=== PATIENT | male | born 1935 | race Caucasian/White ===

== ENCOUNTER 2018-04-13 02:13 | Inpatient (IN) | payer OTHER, MEDICAID ==
[~2018-04-13] VITALS: Ht 160 cm; Wt 64.9 kg
[2018-04-13] VITALS (10 sets, daily range): BP systolic 105–157
[2018-04-13] MEDS ORDERED: NACL 0.9% 1,000 ML IV ONE ×2 (03:30→04:45)
[2018-04-13] MEDS ORDERED: cefTRIAXone 1 GM IVPB PREMIX 50 ML IV ONE ×2 (03:30→04:13)
[2018-04-13 03:33] LABS: HEMATOCRIT 38.7 % (36-54); HEMOGLOBIN 12.5 g/dL (14.0-18.0); INR 1.3 (0.80-1.20); MEAN CORPUSCULAR VOLUME 93 fL (79.0-98.0); PROTHROMBIN TIME 13.2 SECS (9.5-12.5); RED BLOOD CELL COUNT(AUTO) 4.19 MIL/uL (4.2-6.2); WHITE BLOOD COUNT (AUTO) 12.7 K/uL (4.8-10.8)
[2018-04-13 03:34] LABS: BASOPHILS % (AUTO) 0.2 % (0.0-2.0); EOSINOPHILS % (AUTO) 0.1 % (0.0-4.0); LYMPHOCYTES # (AUTO) 0.7 K/uL (1.0-5.5); LYMPHOCYTES % (AUTO) 5.7 % (20.5-51.5); MEAN CORPUSCULAR HEMOGLOBIN 30 pg (27-31); MEAN CORPUSCULAR HGB CONC 32 % (32-36); MONOCYTES # (AUTO) 0.8 K/uL (0.0-1.0); MONOCYTES % (AUTO) 6.4 % (1.7-9.3); NEUTROPHILS # (AUTO) 11.1 K/uL (1.8-7.7); NEUTROPHILS % (AUTO) 87.6 % (40.0-70.0); PLATELET COUNT (AUTO) 186 K/uL (130-430); RED CELL DISTRIBUTION WIDTH 16.6 % (9.0-15.0)
[2018-04-13] MEDS ORDERED: APIX2.5T PO (03:44)
[2018-04-13 03:48] LABS: ANION GAP 13 (5-15); CHLORIDE 108 mmol/L (98-107); POTASSIUM 4.7 mmol/L (3.5-5.1); SODIUM SERUM 143 mmol/L (136-145)
[2018-04-13 03:49] LABS: ALANINE AMINOTRANSFERASE 23 U/L (12-78); ALBUMIN 2.9 g/dL (3.4-4.8); ASPARTATE AMINOTRANSFERASE 104 U/L (10-37); CALCIUM 8.8 mg/dL (8.4-11.0); CREATININE 2.16 mg/dL (0.55-1.30); GLUCOSE 174 mg/dL (70-99); TOTAL BILIRUBIN 1.4 mg/dL (0.0-1.0); UREA NITROGEN, BLOOD 34 mg/dL (8-21)
[2018-04-13] MEDS ORDERED: FURO-150 PO (03:56)
[2018-04-13] MEDS ORDERED: POTA20TA83 PO (03:56)
[2018-04-13] MEDS ORDERED: MOM PO (03:56)
[2018-04-13] MEDS ORDERED: TAMS-11 PO (03:56)
[2018-04-13] MEDS ORDERED: SER25 PO (03:56)
[2018-04-13] MEDS ORDERED: METO25TA6 PO (03:56)
[2018-04-13] MEDS ORDERED: SIMV20TA2 PO (03:56)
[2018-04-13] MEDS ORDERED: SSNOVOLOG SUBCUT (03:56)
[2018-04-13] MEDS ORDERED: LACT10SO6 PO (03:56)
[2018-04-13] MEDS ORDERED: ACET325T53 PO (03:56)
[2018-04-13] MEDS ORDERED: MEMA5TAB PO (03:56)
[2018-04-13] MEDS ORDERED: VITD2000 PO (03:56)
[2018-04-13] MEDS ORDERED: REM15 PO (03:56)
[2018-04-13] MEDS ORDERED: QUEtiapine FUMARATE 25 MG TABLET ONE (04:20)
[2018-04-13] MEDS ORDERED: ASPIRIN 81 MG TAB.CHEW PO ONE (05:00)
[2018-04-13] MEDS ORDERED: VANCOMYCIN HCL 1,000 MG in NS 250 ML IV ONE (05:00)
[2018-04-13] MEDS ORDERED: ASPIRIN 81 MG TAB.CHEW ONE (05:09)
[2018-04-13] MEDS: INSULIN REGULAR, HUMAN 100 UNITS/ML, 10 ML VIAL (novoLIN R) SUBCUT PRN ×3 (06:38→20:46)
[2018-04-13] MEDS ORDERED: VANCOMYCIN HCL 1000 MG/VIAL IV ONE (07:04)
[2018-04-13] MEDS: LevALBUTEROL HCL 1.25 MG/0.5 ML *CONC.* VIAL.NEB (XOPENEX CONC.) INH SCH ×5 (08:00→23:43)
[2018-04-13] MEDS ORDERED: PIPERACILLIN/TAZO 3.375 GM in NS 50 ML IV SCH (08:00)
[2018-04-13] MEDS: 0.45% NACL 1,000 ML IV SCH ×2 (08:04→18:26)
[2018-04-13] MEDS ORDERED: LevALBUTEROL HCL 1.25 MG/0.5 ML *CONC.* VIAL.NEB (XOPENEX CONC.) INH ONE ×4 (10:58→23:41)
[2018-04-13] MEDS: PIPERACILLIN/TAZOBACTAM 2.25 GM/ D5W 50 ML IV SCH ×4 (15:23→22:20)
[2018-04-13] MEDS ORDERED: ACETAMINOPHEN 325 MG TABLET PO PRN (18:15)
[2018-04-13] MEDS ORDERED: MILK OF MAGNESIA 30 ML UDC PO PRN (18:15)
[2018-04-13 19:19] LABS: CREATINE KINASE MB 12.4 ng/mL (0-3.6)
[2018-04-13] MEDS ORDERED: MEMANTINE HCL 5 MG TABLET PO SCH (20:00)
[2018-04-13] MEDS ORDERED: ENOXAPARIN SODIUM 60 MG/0.6 ML SYRINGE ONE (20:34)
[2018-04-13] MEDS: MIRTAZAPINE 15 MG TABLET PO SCH (20:43)
[2018-04-13] MEDS: METOPROLOL TARTRATE 25 MG TABLET PO SCH (20:44)
[2018-04-13] MEDS: QUEtiapine FUMARATE 25 MG TABLET PO SCH (20:44)
[2018-04-13] MEDS: SIMVASTATIN 20 MG TABLET PO SCH (20:44)
[2018-04-13] MEDS ORDERED: QUEtiapine FUMARATE 25 MG TABLET PO SCH (21:00)
[2018-04-13] MEDS ORDERED: ENOXAPARIN SODIUM 60 MG/0.6 ML SYRINGE SUBCUT SCH (21:00)
[2018-04-13] MEDS ORDERED: APIXABAN 2.5 MG TABLET PO SCH (21:00)
[2018-04-13] MEDS: ENOXAPARIN SODIUM 60 MG/0.6 ML SYRINGE SUBCUT SCH (21:00)
[2018-04-13] MEDS ORDERED: ALBUTEROL SULFATE 0.083% 2.5 MG/3 ML VIAL.NEB INH ONE (21:08)
[2018-04-14] VITALS (23 sets, daily range): BP systolic 116–161
[2018-04-14] MEDS: LevALBUTEROL HCL 1.25 MG/0.5 ML *CONC.* VIAL.NEB (XOPENEX CONC.) INH SCH ×3 (03:00→19:50)
[2018-04-14] MEDS: PIPERACILLIN/TAZOBACTAM 2.25 GM/ D5W 50 ML IV SCH ×8 (04:36→21:37)
[2018-04-14] MEDS: 0.45% NACL 1,000 ML IV SCH (06:52)
[2018-04-14 07:26] LABS: BASOPHILS % (AUTO) 0.5 % (0.0-2.0); EOSINOPHILS # (AUTO) 0.1 K/uL (0.0-0.4); EOSINOPHILS % (AUTO) 0.7 % (0.0-4.0); HEMOGLOBIN 11.3 g/dL (14.0-18.0); LYMPHOCYTES # (AUTO) 0.9 K/uL (1.0-5.5); LYMPHOCYTES % (AUTO) 10.1 % (20.5-51.5); MEAN CORPUSCULAR HEMOGLOBIN 30 pg (27-31); MEAN CORPUSCULAR HGB CONC 32 % (32-36); MEAN CORPUSCULAR VOLUME 93 fL (79.0-98.0); MONOCYTES # (AUTO) 0.4 K/uL (0.0-1.0); MONOCYTES % (AUTO) 4.3 % (1.7-9.3); NEUTROPHILS # (AUTO) 7.8 K/uL (1.8-7.7); NEUTROPHILS % (AUTO) 84.4 % (40.0-70.0); PLATELET COUNT (AUTO) 148 K/uL (130-430); RED BLOOD CELL COUNT(AUTO) 3.77 MIL/uL (4.2-6.2); RED CELL DISTRIBUTION WIDTH 15.6 % (9.0-15.0); WHITE BLOOD COUNT (AUTO) 9.2 K/uL (4.8-10.8)
[2018-04-14 07:29] LABS: ANION GAP 10 (5-15); CALCIUM 7.8 mg/dL (8.4-11.0); CHLORIDE 113 mmol/L (98-107); CREATININE 1.84 mg/dL (0.55-1.30); GLUCOSE 118 mg/dL (70-99); POTASSIUM 4.7 mmol/L (3.5-5.1); SODIUM SERUM 142 mmol/L (136-145); UREA NITROGEN, BLOOD 37 mg/dL (8-21)
[2018-04-14] MEDS: POTASSIUM CHLORIDE 20 MEQ TAB.PRT.SR PO SCH (09:07)
[2018-04-14] MEDS: CHOLECALCIFEROL (VITAMIN D3) 2,000 UNIT TABLET PO SCH (09:07)
[2018-04-14] MEDS: MEMANTINE HCL 5 MG TABLET PO SCH (09:08)
[2018-04-14] MEDS: METOPROLOL TARTRATE 25 MG TABLET PO SCH ×2 (09:08→20:31)
[2018-04-14] MEDS ORDERED: LevALBUTEROL HCL 1.25 MG/0.5 ML *CONC.* VIAL.NEB (XOPENEX CONC.) INH ONE (09:29)
[2018-04-14] MEDS ORDERED: LevALBUTEROL HCL 1.25 MG/0.5 ML *CONC.* VIAL.NEB (XOPENEX CONC.) INH SCH (11:00)
[2018-04-14] MEDS ORDERED: ASPIRIN 81 MG TAB.CHEW PO ONE (11:00)
[2018-04-14] MEDS ORDERED: QUEtiapine FUMARATE 25 MG TABLET PO ONE (12:30)
[2018-04-14] MEDS: NITROGLYCERIN 0.4 MG TAB.SUBL SL PRN ×2 (12:49→18:47)
[2018-04-14] MEDS ORDERED: methylPREDNISolone SOD SUCC/PF 62.5 MG/ML VIAL IVP ONE (14:30)
[2018-04-14] MEDS: TAMSULOSIN HCL 0.4 MG CAP PO SCH ×2 (15:49→15:51)
[2018-04-14] MEDS ORDERED: LevALBUTEROL HCL 1.25 MG/0.5 ML *CONC.* VIAL.NEB (XOPENEX CONC.) INH PRN (16:30)
[2018-04-14] MEDS: INSULIN REGULAR, HUMAN 100 UNITS/ML, 10 ML VIAL (novoLIN R) SUBCUT PRN ×2 (17:30→20:50)
[2018-04-14] MEDS: FUROSEMIDE 40 MG/4 ML VIAL IVP SCH ×2 (18:48→20:32)
[2018-04-14] MEDS ORDERED: FUROSEMIDE 40 MG/4 ML VIAL ONE (18:53)
[2018-04-14] MEDS ORDERED: VANCOMYCIN HCL 1,000 MG in NS 250 ML IV SCH (20:00)
[2018-04-14] MEDS: MIRTAZAPINE 15 MG TABLET PO SCH (20:31)
[2018-04-14] MEDS: QUEtiapine FUMARATE 25 MG TABLET PO SCH (20:31)
[2018-04-14] MEDS: SIMVASTATIN 20 MG TABLET PO SCH (20:31)
[2018-04-14] MEDS: ENOXAPARIN SODIUM 60 MG/0.6 ML SYRINGE SUBCUT SCH (20:33)
[2018-04-14] MEDS: methylPREDNISolone SOD SUCC/PF 62.5 MG/ML VIAL IVP SCH (21:36)
[2018-04-15] VITALS (24 sets, daily range): BP systolic 135–188
[2018-04-15] MEDS: LevALBUTEROL HCL 1.25 MG/0.5 ML *CONC.* VIAL.NEB (XOPENEX CONC.) INH SCH ×4 (00:45→19:39)
[2018-04-15] MEDS ORDERED: LORazepam 2 MG/ML VIAL ONE (02:10)
[2018-04-15] MEDS: LORazepam 2 MG/ML VIAL IVP PRN ×4 (02:15→21:45)
[2018-04-15] MEDS: PIPERACILLIN/TAZOBACTAM 2.25 GM/ D5W 50 ML IV SCH ×8 (04:04→22:12)
[2018-04-15] MEDS: methylPREDNISolone SOD SUCC/PF 62.5 MG/ML VIAL IVP SCH ×3 (05:21→21:37)
[2018-04-15 06:18] LABS: BASOPHILS % (AUTO) 0.2 % (0.0-2.0); EOSINOPHILS % (AUTO) 0.1 % (0.0-4.0); HEMATOCRIT 36.2 % (36-54); HEMOGLOBIN 11.8 g/dL (14.0-18.0); LYMPHOCYTES # (AUTO) 0.7 K/uL (1.0-5.5); MEAN CORPUSCULAR HEMOGLOBIN 30 pg (27-31); MEAN CORPUSCULAR HGB CONC 33 % (32-36); MEAN CORPUSCULAR VOLUME 92 fL (79.0-98.0); MONOCYTES # (AUTO) 0.1 K/uL (0.0-1.0); MONOCYTES % (AUTO) 1.1 % (1.7-9.3); NEUTROPHILS # (AUTO) 4.3 K/uL (1.8-7.7); NEUTROPHILS % (AUTO) 85.6 % (40.0-70.0); PLATELET COUNT (AUTO) 174 K/uL (130-430); RED BLOOD CELL COUNT(AUTO) 3.92 MIL/uL (4.2-6.2); RED CELL DISTRIBUTION WIDTH 15.7 % (9.0-15.0); WHITE BLOOD COUNT (AUTO) 5.1 K/uL (4.8-10.8)
[2018-04-15] MEDS: INSULIN REGULAR, HUMAN 100 UNITS/ML, 10 ML VIAL (novoLIN R) SUBCUT PRN ×4 (06:32→21:44)
[2018-04-15 06:44] LABS: ANION GAP 15 (5-15); CALCIUM 8.5 mg/dL (8.4-11.0); CHLORIDE 112 mmol/L (98-107); CREATININE 2.45 mg/dL (0.55-1.30); GLUCOSE 227 mg/dL (70-99); POTASSIUM 4.9 mmol/L (3.5-5.1); SODIUM SERUM 147 mmol/L (136-145); UREA NITROGEN, BLOOD 52 mg/dL (8-21)
[2018-04-15 06:53] LABS: ALANINE AMINOTRANSFERASE 18 U/L (12-78); ALBUMIN 2.5 g/dL (3.4-4.8); ASPARTATE AMINOTRANSFERASE 35 U/L (10-37); TOTAL BILIRUBIN 0.9 mg/dL (0.0-1.0)
[2018-04-15] MEDS: FUROSEMIDE 40 MG/4 ML VIAL IVP SCH ×2 (08:55→21:38)
[2018-04-15] MEDS: CHOLECALCIFEROL (VITAMIN D3) 2,000 UNIT TABLET PO SCH (08:56)
[2018-04-15] MEDS: METOPROLOL TARTRATE 25 MG TABLET PO SCH ×2 (08:56→21:39)
[2018-04-15] MEDS: MEMANTINE HCL 5 MG TABLET PO SCH (08:57)
[2018-04-15] MEDS: ASPIRIN 81 MG TAB.CHEW PO SCH (08:57)
[2018-04-15] MEDS: POTASSIUM CHLORIDE 20 MEQ TAB.PRT.SR PO SCH (08:57)
[2018-04-15] MEDS: TAMSULOSIN HCL 0.4 MG CAP PO SCH (08:57)
[2018-04-15] MEDS: MUPIROCIN NASAL 2% OINT. NS SCH ×2 (08:58→21:47)
[2018-04-15] MEDS ORDERED: LOSARTAN POTASSIUM 50 MG TABLET (COZAAR) PO ONE (09:30)
[2018-04-15] MEDS: QUEtiapine FUMARATE 25 MG TABLET PO SCH (21:36)
[2018-04-15] MEDS: MIRTAZAPINE 15 MG TABLET PO SCH (21:37)
[2018-04-15] MEDS: SIMVASTATIN 20 MG TABLET PO SCH (21:37)
[2018-04-15] MEDS: ENOXAPARIN SODIUM 60 MG/0.6 ML SYRINGE SUBCUT SCH (21:44)
[2018-04-16] VITALS (25 sets, daily range): BP systolic 117–186
[2018-04-16] MEDS: LevALBUTEROL HCL 1.25 MG/0.5 ML *CONC.* VIAL.NEB (XOPENEX CONC.) INH SCH ×4 (00:57→19:38)
[2018-04-16] MEDS: LORazepam 2 MG/ML VIAL IVP PRN (03:45)
[2018-04-16] MEDS: PIPERACILLIN/TAZOBACTAM 2.25 GM/ D5W 50 ML IV SCH ×8 (03:45→21:17)
[2018-04-16] MEDS: methylPREDNISolone SOD SUCC/PF 62.5 MG/ML VIAL IVP SCH ×3 (06:19→21:16)
[2018-04-16 06:38] LABS: BASOPHILS % (AUTO) 0.1 % (0.0-2.0); EOSINOPHILS % (AUTO) 0.1 % (0.0-4.0); HEMATOCRIT 34.5 % (36-54); HEMOGLOBIN 11.2 g/dL (14.0-18.0); LYMPHOCYTES # (AUTO) 0.4 K/uL (1.0-5.5); LYMPHOCYTES % (AUTO) 4.7 % (20.5-51.5); MEAN CORPUSCULAR HEMOGLOBIN 30 pg (27-31); MEAN CORPUSCULAR HGB CONC 33 % (32-36); MEAN CORPUSCULAR VOLUME 93 fL (79.0-98.0); MONOCYTES # (AUTO) 0.2 K/uL (0.0-1.0); NEUTROPHILS # (AUTO) 8.2 K/uL (1.8-7.7); NEUTROPHILS % (AUTO) 93.1 % (40.0-70.0); PLATELET COUNT (AUTO) 186 K/uL (130-430); RED BLOOD CELL COUNT(AUTO) 3.71 MIL/uL (4.2-6.2); RED CELL DISTRIBUTION WIDTH 15.5 % (9.0-15.0); WHITE BLOOD COUNT (AUTO) 8.8 K/uL (4.8-10.8)
[2018-04-16 07:25] LABS: ANION GAP 12 (5-15); CHLORIDE 115 mmol/L (98-107); CREATININE 2.39 mg/dL (0.55-1.30); GLUCOSE 177 mg/dL (70-99); POTASSIUM 3.9 mmol/L (3.5-5.1); SODIUM SERUM 151 mmol/L (136-145); UREA NITROGEN, BLOOD 56 mg/dL (8-21)
[2018-04-16 07:36] LABS: ALANINE AMINOTRANSFERASE 16 U/L (12-78); ALBUMIN 2.3 g/dL (3.4-4.8); ASPARTATE AMINOTRANSFERASE 21 U/L (10-37); TOTAL BILIRUBIN 0.6 mg/dL (0.0-1.0)
[2018-04-16] MEDS: ASPIRIN 81 MG TAB.CHEW PO SCH (08:17)
[2018-04-16] MEDS: MEMANTINE HCL 5 MG TABLET PO SCH (08:17)
[2018-04-16] MEDS: FUROSEMIDE 40 MG/4 ML VIAL IVP SCH ×2 (08:17→21:17)
[2018-04-16] MEDS: CHOLECALCIFEROL (VITAMIN D3) 2,000 UNIT TABLET PO SCH (08:17)
[2018-04-16] MEDS: METOPROLOL TARTRATE 25 MG TABLET PO SCH ×2 (08:17→21:16)
[2018-04-16] MEDS: TAMSULOSIN HCL 0.4 MG CAP PO SCH (08:17)
[2018-04-16] MEDS: LOSARTAN POTASSIUM 50 MG TABLET (COZAAR) PO SCH (08:18)
[2018-04-16] MEDS: POTASSIUM CHLORIDE 20 MEQ TAB.PRT.SR PO SCH (08:18)
[2018-04-16] MEDS: MUPIROCIN 2% TOPICAL OINTMENT 22 GM NS SCH ×2 (09:57→21:18)
[2018-04-16] MEDS: INSULIN REGULAR, HUMAN 100 UNITS/ML, 10 ML VIAL (novoLIN R) SUBCUT PRN ×3 (11:52→21:23)
[2018-04-16] MEDS: D5W 1,000 ML IV SCH (14:34)
[2018-04-16] MEDS ORDERED: cloNIDine HCL 0.1 MG TABLET PO PRN (16:30)
[2018-04-16] MEDS ORDERED: cloNIDine HCL 0.1 MG TABLET ONE (17:00)
[2018-04-16] MEDS: QUEtiapine FUMARATE 25 MG TABLET PO SCH (21:15)
[2018-04-16] MEDS: MIRTAZAPINE 15 MG TABLET PO SCH (21:16)
[2018-04-16] MEDS: SIMVASTATIN 20 MG TABLET PO SCH (21:16)
[2018-04-16] MEDS: ENOXAPARIN SODIUM 60 MG/0.6 ML SYRINGE SUBCUT SCH (21:23)
[2018-04-17] VITALS (20 sets, daily range): BP systolic 127–187
[2018-04-17] MEDS: LevALBUTEROL HCL 1.25 MG/0.5 ML *CONC.* VIAL.NEB (XOPENEX CONC.) INH SCH ×4 (01:00→20:13)
[2018-04-17] MEDS: PIPERACILLIN/TAZOBACTAM 2.25 GM/ D5W 50 ML IV SCH ×8 (04:03→23:37)
[2018-04-17] MEDS: methylPREDNISolone SOD SUCC/PF 62.5 MG/ML VIAL IVP SCH ×3 (06:18→23:36)
[2018-04-17 06:50] LABS: BASOPHILS % (AUTO) 0.1 % (0.0-2.0); EOSINOPHILS % (AUTO) 0.1 % (0.0-4.0); HEMOGLOBIN 11.6 g/dL (14.0-18.0); LYMPHOCYTES # (AUTO) 0.3 K/uL (1.0-5.5); LYMPHOCYTES % (AUTO) 4.1 % (20.5-51.5); MEAN CORPUSCULAR HEMOGLOBIN 30 pg (27-31); MEAN CORPUSCULAR HGB CONC 32 % (32-36); MEAN CORPUSCULAR VOLUME 92 fL (79.0-98.0); MONOCYTES # (AUTO) 0.2 K/uL (0.0-1.0); MONOCYTES % (AUTO) 2.5 % (1.7-9.3); NEUTROPHILS # (AUTO) 7.1 K/uL (1.8-7.7); NEUTROPHILS % (AUTO) 93.2 % (40.0-70.0); PLATELET COUNT (AUTO) 199 K/uL (130-430); RED BLOOD CELL COUNT(AUTO) 3.91 MIL/uL (4.2-6.2); RED CELL DISTRIBUTION WIDTH 15.9 % (9.0-15.0); WHITE BLOOD COUNT (AUTO) 7.6 K/uL (4.8-10.8)
[2018-04-17 07:04] LABS: ANION GAP 14 (5-15); CALCIUM 8.4 mg/dL (8.4-11.0); CHLORIDE 113 mmol/L (98-107); CREATININE 2.31 mg/dL (0.55-1.30); GLUCOSE 173 mg/dL (70-99); POTASSIUM 3.5 mmol/L (3.5-5.1); SODIUM SERUM 152 mmol/L (136-145); UREA NITROGEN, BLOOD 58 mg/dL (8-21)
[2018-04-17 07:14] LABS: ALANINE AMINOTRANSFERASE 20 U/L (12-78); ALBUMIN 2.6 g/dL (3.4-4.8); ASPARTATE AMINOTRANSFERASE 24 U/L (10-37); TOTAL BILIRUBIN 0.8 mg/dL (0.0-1.0)
[2018-04-17] MEDS: FUROSEMIDE 40 MG/4 ML VIAL IVP SCH ×2 (08:04→20:37)
[2018-04-17] MEDS: hydrALAZINE HCL 20 MG/ML VIAL IVP PRN ×2 (08:05→15:44)
[2018-04-17] MEDS: MUPIROCIN 2% TOPICAL OINTMENT 22 GM NS SCH ×2 (08:18→20:37)
[2018-04-17] MEDS: ASPIRIN 81 MG TAB.CHEW PO SCH (09:00)
[2018-04-17] MEDS: LOSARTAN POTASSIUM 50 MG TABLET (COZAAR) PO SCH (09:00)
[2018-04-17] MEDS: POTASSIUM CHLORIDE 20 MEQ TAB.PRT.SR PO SCH (09:00)
[2018-04-17] MEDS ORDERED: cloNIDine HCL 0.3 MG/24 HR PATCH.TDWK TD SCH (09:00)
[2018-04-17] MEDS: MEMANTINE HCL 5 MG TABLET PO SCH (09:00)
[2018-04-17] MEDS: CHOLECALCIFEROL (VITAMIN D3) 2,000 UNIT TABLET PO SCH (09:00)
[2018-04-17] MEDS: TAMSULOSIN HCL 0.4 MG CAP PO SCH (09:00)
[2018-04-17] MEDS: METOPROLOL TARTRATE 25 MG TABLET PO SCH ×2 (09:00→20:36)
[2018-04-17] MEDS ORDERED: METOPROLOL TARTRATE 5 MG/5 ML VIAL IVP PRN (09:15)
[2018-04-17] MEDS ORDERED: HALOPERIDOL LACTATE 5 MG/ML VIAL ONE (09:42)
[2018-04-17] MEDS: HALOPERIDOL LACTATE 5 MG/ML VIAL IVP PRN ×2 (09:47→14:18)
[2018-04-17] MEDS: NITROGLYCERIN 0.4 MG TAB.SUBL SL PRN (10:24)
[2018-04-17] MEDS: D5W 1,000 ML IV SCH (11:03)
[2018-04-17] MEDS: INSULIN REGULAR, HUMAN 100 UNITS/ML, 10 ML VIAL (novoLIN R) SUBCUT PRN ×3 (11:07→20:49)
[2018-04-17] MEDS ORDERED: LORazepam 2 MG/ML VIAL IVP PRN (16:00)
[2018-04-17] MEDS: SIMVASTATIN 20 MG TABLET PO SCH (20:36)
[2018-04-17] MEDS: MIRTAZAPINE 15 MG TABLET PO SCH ×2 (20:36→21:00)
[2018-04-17] MEDS: QUEtiapine FUMARATE 25 MG TABLET PO SCH (20:37)
[2018-04-17] MEDS: ENOXAPARIN SODIUM 60 MG/0.6 ML SYRINGE SUBCUT SCH (20:49)
[2018-04-17] MEDS ORDERED: CITALOPRAM HYDROBROMIDE 20 MG TABLET PO SCH (21:00)
[2018-04-18 00:45] VITALS: BP_SYST 143
[2018-04-18] MEDS: D5W 1,000 ML IV SCH (00:57)
[2018-04-18] MEDS: LevALBUTEROL HCL 1.25 MG/0.5 ML *CONC.* VIAL.NEB (XOPENEX CONC.) INH SCH ×4 (01:00→20:22)
[2018-04-18] MEDS: methylPREDNISolone SOD SUCC/PF 62.5 MG/ML VIAL IVP SCH ×3 (05:20→21:52)
[2018-04-18] MEDS: PIPERACILLIN/TAZOBACTAM 2.25 GM/ D5W 50 ML IV SCH ×8 (05:20→21:51)
[2018-04-18] MEDS: INSULIN REGULAR, HUMAN 100 UNITS/ML, 10 ML VIAL (novoLIN R) SUBCUT PRN ×4 (06:34→22:06)
[2018-04-18 07:04] LABS: ALANINE AMINOTRANSFERASE 18 U/L (12-78); ALBUMIN 2.2 g/dL (3.4-4.8); ANION GAP 10 (5-15); ASPARTATE AMINOTRANSFERASE 23 U/L (10-37); CALCIUM 7.8 mg/dL (8.4-11.0); CHLORIDE 110 mmol/L (98-107); GLUCOSE 173 mg/dL (70-99); SODIUM SERUM 144 mmol/L (136-145); TOTAL BILIRUBIN 1.2 mg/dL (0.0-1.0); UREA NITROGEN, BLOOD 49 mg/dL (8-21)
[2018-04-18 07:08] LABS: BASOPHILS % (AUTO) 0.3 % (0.0-2.0); EOSINOPHILS % (AUTO) 0.1 % (0.0-4.0); HEMATOCRIT 32.8 % (36-54); HEMOGLOBIN 10.8 g/dL (14.0-18.0); LYMPHOCYTES # (AUTO) 0.3 K/uL (1.0-5.5); LYMPHOCYTES % (AUTO) 4.2 % (20.5-51.5); MEAN CORPUSCULAR HEMOGLOBIN 30 pg (27-31); MEAN CORPUSCULAR HGB CONC 33 % (32-36); MEAN CORPUSCULAR VOLUME 92 fL (79.0-98.0); MONOCYTES # (AUTO) 0.3 K/uL (0.0-1.0); MONOCYTES % (AUTO) 4.1 % (1.7-9.3); NEUTROPHILS # (AUTO) 6.2 K/uL (1.8-7.7); NEUTROPHILS % (AUTO) 91.3 % (40.0-70.0); PLATELET COUNT (AUTO) 172 K/uL (130-430); POTASSIUM 2.4 mmol/L (3.5-5.1); RED BLOOD CELL COUNT(AUTO) 3.56 MIL/uL (4.2-6.2); RED CELL DISTRIBUTION WIDTH 15.7 % (9.0-15.0); WHITE BLOOD COUNT (AUTO) 6.8 K/uL (4.8-10.8)
[2018-04-18] MEDS ORDERED: POTASSIUM CHLORIDE 40 MEQ in NS 250 ML IV ONE (07:45)
[2018-04-18] MEDS ORDERED: POTASSIUM CHLORIDE 20 MEQ/PKT PACKET PO ONE (07:45)
[2018-04-18 08:00] VITALS: BP_SYST 149
[2018-04-18] MEDS: MUPIROCIN 2% TOPICAL OINTMENT 22 GM NS SCH ×2 (09:00→21:57)
[2018-04-18] MEDS: CHOLECALCIFEROL (VITAMIN D3) 2,000 UNIT TABLET PO SCH (10:03)
[2018-04-18] MEDS: POTASSIUM CHLORIDE 20 MEQ TAB.PRT.SR PO SCH (10:03)
[2018-04-18] MEDS: MEMANTINE HCL 5 MG TABLET PO SCH (10:04)
[2018-04-18] MEDS: METOPROLOL TARTRATE 25 MG TABLET PO SCH ×2 (10:04→21:55)
[2018-04-18] MEDS: LOSARTAN POTASSIUM 50 MG TABLET (COZAAR) PO SCH (10:04)
[2018-04-18] MEDS: TAMSULOSIN HCL 0.4 MG CAP PO SCH (10:04)
[2018-04-18] MEDS: ASPIRIN 81 MG TAB.CHEW PO SCH (10:08)
[2018-04-18] MEDS: CITALOPRAM HYDROBROMIDE 20 MG TABLET PO SCH (10:08)
[2018-04-18] MEDS: FUROSEMIDE 40 MG/4 ML VIAL IVP SCH ×2 (10:08→21:52)
[2018-04-18 11:43] VITALS: BP_SYST 147
[2018-04-18 16:02] VITALS: BP_SYST 151
[2018-04-18 16:31] LABS: ANION GAP 11 (5-15); CALCIUM 8.1 mg/dL (8.4-11.0); CHLORIDE 109 mmol/L (98-107); CREATININE 2.17 mg/dL (0.55-1.30); GLUCOSE 212 mg/dL (70-99); POTASSIUM 3.6 mmol/L (3.5-5.1); SODIUM SERUM 143 mmol/L (136-145); UREA NITROGEN, BLOOD 52 mg/dL (8-21)
[2018-04-18] MEDS: HALOPERIDOL LACTATE 5 MG/ML VIAL IVP PRN (16:50)
[2018-04-18] MEDS ORDERED: D5W 1,000 ML IV PRN (19:45)
[2018-04-18] MEDS ORDERED: GLUCOSE 15 GM GEL (in 37.5 GM TUBE) PO PRN (19:45)
[2018-04-18] MEDS ORDERED: DEXTROSE 50%-WATER 50 ML DISP.SYRIN IVP PRN (19:45)
[2018-04-18 20:52] VITALS: BP_SYST 161
[2018-04-18] MEDS: SIMVASTATIN 20 MG TABLET PO SCH (21:53)
[2018-04-18] MEDS: QUEtiapine FUMARATE 25 MG TABLET PO SCH (21:53)
[2018-04-18] MEDS: MIRTAZAPINE 15 MG TABLET PO SCH (21:54)
[2018-04-18] MEDS: APIXABAN 2.5 MG TABLET PO SCH (21:57)
[2018-04-18 23:02] VITALS: BP_SYST 150
[2018-04-19] MEDS: LevALBUTEROL HCL 1.25 MG/0.5 ML *CONC.* VIAL.NEB (XOPENEX CONC.) INH SCH ×3 (01:00→15:02)
[2018-04-19] MEDS: methylPREDNISolone SOD SUCC/PF 62.5 MG/ML VIAL IVP SCH ×2 (06:46→14:48)
[2018-04-19] MEDS: PIPERACILLIN/TAZOBACTAM 2.25 GM/ D5W 50 ML IV SCH ×4 (06:47→08:59)
[2018-04-19] MEDS: INSULIN REGULAR, HUMAN 100 UNITS/ML, 10 ML VIAL (novoLIN R) SUBCUT PRN ×2 (06:53→11:40)
[2018-04-19 08:05] VITALS: BP_SYST 153
[2018-04-19] MEDS: FUROSEMIDE 40 MG/4 ML VIAL IVP SCH (08:55)
[2018-04-19] MEDS: MUPIROCIN 2% TOPICAL OINTMENT 22 GM NS SCH (08:55)
[2018-04-19] MEDS: METOPROLOL TARTRATE 25 MG TABLET PO SCH (08:56)
[2018-04-19] MEDS: MEMANTINE HCL 5 MG TABLET PO SCH (08:56)
[2018-04-19] MEDS: CHOLECALCIFEROL (VITAMIN D3) 2,000 UNIT TABLET PO SCH (08:57)
[2018-04-19] MEDS: LOSARTAN POTASSIUM 50 MG TABLET (COZAAR) PO SCH (08:57)
[2018-04-19] MEDS: POTASSIUM CHLORIDE 20 MEQ TAB.PRT.SR PO SCH (08:58)
[2018-04-19] MEDS: TAMSULOSIN HCL 0.4 MG CAP PO SCH (08:58)
[2018-04-19] MEDS: ASPIRIN 81 MG TAB.CHEW PO SCH (08:58)
[2018-04-19] MEDS: CITALOPRAM HYDROBROMIDE 20 MG TABLET PO SCH (08:58)
[2018-04-19] MEDS: APIXABAN 2.5 MG TABLET PO SCH (08:59)
[2018-04-19 12:02] VITALS: BP_SYST 146
[2018-04-19 15:04] VITALS: BP_SYST 146
== END 2018-04-19 16:15 | DRG 871 ==
LOC: SED 02:13 → STU 04:57 → SIC 21:08 → STU 04-17 18:22
PROVIDERS: ADMIT Family Medicine; ATTEND Family Medicine
DX: A41.9 Sepsis, unspecified organism (principal); J69.0 Pneumonitis due to inhalation of food and vomit; I21.4 Non-ST elevation (NSTEMI) myocardial infarction; G93.41 Metabolic encephalopathy; J44.1 Chronic obstructive pulmonary disease with (acute) exacerbation; I50.42 Chronic combined systolic (congestive) and diastolic (congestive) heart failure; I42.9 Cardiomyopathy, unspecified; N17.9 Acute kidney failure, unspecified; D68.59 Other primary thrombophilia; E87.0 Hyperosmolality and hypernatremia; I13.0 Hypertensive heart and chronic kidney disease with heart failure and stage 1 through stage 4 chronic kidney disease, or unspecified chronic kidney disease; I69.354 Hemiplegia and hemiparesis following cerebral infarction affecting left non-dominant side; I48.2 Chronic atrial fibrillation; N18.3 Chronic kidney disease, stage 3 (moderate); D64.9 Anemia, unspecified; E11.22 Type 2 diabetes mellitus with diabetic chronic kidney disease; E11.51 Type 2 diabetes mellitus with diabetic peripheral angiopathy without gangrene; E78.5 Hyperlipidemia, unspecified; E86.0 Dehydration; F02.80 Dementia in other diseases classified elsewhere, unspecified severity, without behavioral disturbance, psychotic disturbance, mood disturbance, and anxiety; G30.9 Alzheimer's disease, unspecified; I25.10 Atherosclerotic heart disease of native coronary artery without angina pectoris; I25.5 Ischemic cardiomyopathy; N40.0 Benign prostatic hyperplasia without lower urinary tract symptoms; Z66 Do not resuscitate; F32.9 Major depressive disorder, single episode, unspecified; G89.29 Other chronic pain; Z74.01 Bed confinement status; I25.2 Old myocardial infarction; Z79.01 Long term (current) use of anticoagulants; Z86.718 Personal history of other venous thrombosis and embolism; Z87.891 Personal history of nicotine dependence; Z78.1 Physical restraint status; R09.02 Hypoxemia
CPT/HCPCS: 36415; 36600; 71045; 80048; 80053; 82550-TC; 82553-TC; 82803-TC; 82962; 83605; 83880; 84484; 85025; 85610-TC; 85730-TC; 87040-TC; 87081; 92610-GN; 93005; 93306; 94640; 94760; 99285; J0360; J0696; J1630; J1650; J1815; J1940; J2060; J2543; J2930; J3370; J3480; J7050; J7060; J7612; J7613